=== PATIENT | female | born 1940 | race Caucasian/White ===

== ENCOUNTER 2022-08-22 08:00 | Outpatient (CLI) | payer MEDICARE, OTHER | END 2022-08-22 23:59 | disposition home or self-care (01) | LOC: LAB.S 08:00 | PROVIDERS: ATTEND Physician Assistant Medical | DX: R35.0 Frequency of micturition (principal); R30.0 Dysuria | CPT/HCPCS: 87086 ==

== ENCOUNTER 2023-08-21 08:00 | Outpatient (CLI) | payer MEDICARE, OTHER ==
--- NOTE | 2023-08-21 12:47 | XRAY Report ---
PROCEDURE: Clavicle RT INDICATIONS: RIGHT CLAVICLE PAIN TECHNIQUE: 2 views of the clavicle were acquired. COMPARISON: None. FINDINGS: Bones: No acute fractures or dislocations. No suspicious bony lesions. Moderate acromioclavicular joint osteoarthrosis. Soft tissues: Calcifications are seen adjacent to the greater tuberosity compatible with rotator cuf f calcific tendinosis. IMPRESSION: 1.Moderate acromioclavicular joint osteoarthrosis. 2.Distal rotator cuff calcific tendinopathy. Reviewed by: Elvis Plata MD on 08/21/2023 12:45 PM PDT Approved by: Elvis Plata MD on 08/21/2023 12:45 PM PDT Station ID: [id number]
--- NOTE | 2023-08-21 12:48 | XRAY Report ---
PROCEDURE: Shoulder 2+V RT INDICATIONS: RIGHT SHOULDER PAIN TECHNIQUE: 3 views of the shoulder were acquired. COMPARISON: None. FINDINGS: Bones: No acute fractures or dislocations. No suspicious bony lesions. Visualized ribs appear inta ct. Moderate acromioclavicular joint osteoarthrosis. Soft tissues: Calcifications adjacent to the greater tuberosity are better assessed on concurrent cl avicular radiographs. IMPRESSION: 1.Moderate acromioclavicular joint osteoarthrosis. 2.Distal rotator cuff calcific tendinopathy. Reviewed by: Elvis Plata MD on 08/21/2023 12:47 PM PDT Approved by: Elvis Plata MD on 08/21/2023 12:47 PM PDT Station ID: [id number]
[2023-08-21 21:43] LABS: BACTERIAL VAGINOSIS DNA NEGATIVE (NEGATIVE); CANDIDA GLABRATA DNA NEGATIVE (NEGATIVE); CANDIDA GROUP DNA POSITIVE (NEGATIVE); CANDIDA KRUSEI DNA NEGATIVE (NEGATIVE); TRICHOMONAS VAGINALIS DNA NEGATIVE (NEGATIVE)
== END 2023-08-21 23:59 | disposition home or self-care (01) ==
LOC: DI.S 08:00
PROVIDERS: ATTEND Registered Nurse
DX: M19.011 Primary osteoarthritis, right shoulder (principal); M25.811 Other specified joint disorders, right shoulder; R35.0 Frequency of micturition; R30.0 Dysuria
CPT/HCPCS: 81514; 87086

== ENCOUNTER 2023-10-27 18:36 | Emergency (ER) | payer MEDICARE, OTHER ==
--- NOTE | 2023-10-27 20:11 | XRAY Report ---
PROCEDURE: Shoulder 2+V RT INDICATIONS: fall, R upper arm pain TECHNIQUE: 3 views of the shoulder were acquired. COMPARISON: None. FINDINGS: Bones: No fractures or dislocations. No suspicious bony lesions. Moderate degenerative changes. Vis ualized ribs appear intact. Soft tissues: No suspicious soft tissue calcifications. The visualized lungs are within normal limi ts. IMPRESSION: No fracture demonstrated. Moderate degenerative changes most pronounced at the acromioclavicular joint. Consider follow-up radiographs in 10-14 days. Reviewed by: Juan Ramon Klein MD on 10/27/2023 8:09 PM PDT Approved by: Juan Ramon Klein MD on 10/27/2023 8:09 PM PDT Station ID: [id number]
--- NOTE | 2023-10-27 20:23 | ED Physician Documentation ---
PD HPI UPPER EXT INJURY - Stated complaint Stated Complaint: FALL/RT SHOULDER INJ - Chief complaint Chief Complaint: Trauma Ext - History obtained from History obtained from: Patient - History of Present Illness Location: Right, Shoulder Pain level max: 5 Pain level now: 5 Improved by: Rest, Immobilization Worsened by: Moving, Palpating Associated symptoms: No: Weakness, Numbness, Tingling, Swelling Contributing factors: No: Anticoagulated - Additonal information Additional information: Patient is an 83-year-old female who presents to the emergency department after a fall today while dealing with dogs in the kennel. She injured her right shoulder. No head injury. No headache. No neck or back pain. Worse with movement, better with rest. No numbness or tingling. No swelling. No deformity. Review of Systems Constitutional: denies: Fever, Chills GI: denies: Vomiting, Diarrhea PD PAST MEDICAL HISTORY - Past Medical History Cardiovascular: Hypertension, High cholesterol Neuro: TIA Endocrine/Autoimmune: Type 2 diabetes, HyPOthyroidism GI: GERD Other Past Medical History: insomnia - Past Surgical History Past Surgical History: No - Allergies Allergies/Adverse Reactions: Allergies Allergy/AdvReac Type Severity Reaction Status Date / Time semaglutide Allergy Unknown Verified 10/27/23 18:54 lisinopril AdvReac Respiratory Verified 10/27/23 18:54 - Social History Does the pt smoke?: No Smoking Status: Never smoker Does the pt drink ETOH?: Yes Does the pt have substance abuse?: No PD ED PE NORMAL - Vitals Vital signs reviewed: Yes - General General: Alert and oriented X 3, No acute distress - HEENT HEENT: Atraumatic, PERRL, EOMI, Moist mucous membranes - Neck Neck: Supple, no meningeal sign, No bony TTP - Cardiac Cardiac: RRR, Strong equal pulses - Respiratory Respiratory: No respiratory distress, Clear bilaterally - Abdomen Abdomen: Soft, Non tender, Non distended - Back Back: No spinal TTP - Derm Derm: Warm and dry - Extremities Extremities: Other (Limited range of motion of the right shoulder. No discrete tenderness about the glenohumeral joint. Neurovascular intact. Including the axillary nerve. No tenderness over the clavicle. Otherwise normal examination of the right upper extremity. All other major joints have a normal exam.) - Neuro Neuro: Alert and oriented X 3 - Psych Psych: Normal mood, Normal affect Results - Vitals Vitals: Vital Signs - 24 hr 10/27/23 10/27/23 18:45 20:28 Temperature 36.1 C L Heart Rate 74 62 Respiratory 18 16 Rate Blood Pressure 136/101 H 137/68 H O2 Saturation 98 95 Oxygen O2 Source Room air - Rads (name of study) Right shoulder x-ray Relevant Findings:: Final report received, See rad report PD Medical Decision Making - ED course Complexity details: reviewed results, re-evaluated patient, considered differential, d/w patient ED course: No acute findings on x-ray. Placed in a sling for comfort. Neurovascular intact including the axillary nerve. Head injury instructions given at bedside even though she denies striking her head. Patient declines a head CT at this time. She is reportedly on Plavix at home. Declines pain medication here for home. Patient counseled regarding signs and symptoms for which I believe and urgent re-evaluation would be necessary. Patient with good understanding of and agreement to plan and is comfortable going home at this time This document was made in part using voice recognition software. While efforts are made to proofread this document, sound alike and grammatical errors may occur. Departure - Departure Disposition: 01 Home, Self Care Clinical Impression: Contusion of right shoulder Qualifiers: Encounter type: initial encounter Qualified Code(s): S40.011A - Contusion of right shoulder, initial encounter Condition: Good Instructions: ED Contusion Shoulder Follow-Up: Ben Garcia MD [Primary Care Provider] - Comments: Your x-ray does not show acute abnormalities today. You can use the sling as needed for comfort. In a few days you should make sure to start moving your arm gently in small circles to help prevent a frozen shoulder. If you are still having pain in 1 week, please follow-up with your doctor for repeat evaluation. If you start to develop headaches, vomiting, dizziness or other new or worrisome symptoms, please return for evaluation of your head. Forms: PCP List Discharge Date/Time: 10/27/23 20:28
[2023-10-27 20:40] VITALS: BP 137/68; O2SAT 95
== END 2023-10-27 20:28 | disposition home or self-care (01) ==
LOC: ED 18:36
DX: S40.011A Contusion of right shoulder, initial encounter (principal); W18.39XA Other fall on same level, initial encounter; I10 Essential (primary) hypertension; E78.00 Pure hypercholesterolemia, unspecified; E11.9 Type 2 diabetes mellitus without complications; E03.9 Hypothyroidism, unspecified; Z86.73 Personal history of transient ischemic attack (TIA), and cerebral infarction without residual deficits
CPT/HCPCS: 99283

== ENCOUNTER 2023-11-29 16:36 | Outpatient (CLI) | payer MEDICARE, OTHER | END 2023-11-29 23:59 | disposition critical access hospital (66) | LOC: EMS 16:36 | DX: M25.472 Effusion, left ankle (principal); M25.572 Pain in left ankle and joints of left foot; W01.0XXA Fall on same level from slipping, tripping and stumbling without subsequent striking against object, initial encounter; Y93.01 Activity, walking, marching and hiking; Y92.008 Other place in unspecified non-institutional (private) residence as the place of occurrence of the external cause | CPT/HCPCS: A0425; A0427 ==

== ENCOUNTER 2023-11-29 17:10 | Emergency (ER) | payer MEDICARE, OTHER ==
--- NOTE | 2023-11-29 18:00 | XRAY Report ---
PROCEDURE: Ankle 3+V LT INDICATIONS: fall, ankle pain TECHNIQUE: 3 views of the ankle were acquired. COMPARISON: None. FINDINGS: Bones: Mildly displaced spiral fracture of the distal fibula. The tibia demonstrates medial subluxat ion/borderline dislocation at the tibiotalar joint space. There is asymmetric widening at the lateral aspect of the tibiotalar joint space. In addition, mild anterior subluxation/dislocation of the tibi a in relation to the talus is present. Soft tissues: Ankle edema.. Achilles tendon appears normal. IMPRESSION: Spiral distal fibular fracture with prominent subluxation/dislocation at the tibiotalar joint space a s described above. Reviewed by: Asia Chin MD on 11/29/2023 5:59 PM PDT Approved by: Asia Chin MD on 11/29/2023 5:59 PM PDT Station ID: [id number]
--- NOTE | 2023-11-29 18:04 | ED Physician Documentation ---
History of Present Illness - Stated complaint Stated Complaint: FALL - Chief complaint Chief Complaint: Trauma Ext - Additonal information Additional information: Patient is an 83-year-old female presenting to the emergency department after a fall at home. Patient was attempting to move gravel around her car before backing it out when she tripped and fell on her left foot. Ambulance was called shortly after and she received pain medications en route. Patient's pain improved here in the emergency department. She denies hitting her head no loss of consciousness and patient is not on blood thinners. Patient denies any numbness or tingling in her left foot. No previous injuries to her left foot. Patient denies any other extremity pain at this time. PD PAST MEDICAL HISTORY - Past Medical History Cardiovascular: Hypertension, High cholesterol Neuro: TIA Endocrine/Autoimmune: Type 2 diabetes, HyPOthyroidism GI: GERD - Past Surgical History Past Surgical History: No - Allergies Allergies/Adverse Reactions: Allergies Allergy/AdvReac Type Severity Reaction Status Date / Time semaglutide Allergy Unknown Verified 11/29/23 17:17 lisinopril AdvReac Respiratory Verified 11/29/23 17:17 - Social History Does the pt smoke?: No Smoking Status: Never smoker Does the pt drink ETOH?: Yes Does the pt have substance abuse?: No PD ED PE NORMAL - Vitals Vital signs reviewed: Yes - General General: Alert and oriented X 3 - HEENT HEENT: Atraumatic - Neck Neck: Supple, no meningeal sign - Cardiac Cardiac: RRR, No murmur, No gallop, No rub - Respiratory Respiratory: No respiratory distress, Clear bilaterally - Abdomen Abdomen: Normal bowel sounds - Derm Derm: Normal color, Other (Abrasions noted to medial portion of left ankle.) - Extremities Extremities: No edema, No calf tenderness / cord, Other (Obvious swelling noted to left ankle) - Neuro Neuro: Alert and oriented X 3 Eye Opening: Spontaneous Motor: Obeys Commands Verbal: Oriented GCS Score: 15 Results - Vitals Vitals: Vital Signs - 24 hr 11/29/23 11/29/23 11/29/23 17:17 19:19 21:43 Temperature 36.5 C Heart Rate 70 68 80 Respiratory 18 16 16 Rate Blood Pressure 124/66 115/64 117/58 L O2 Saturation 95 96 96 Oxygen O2 Source Room air PD Medical Decision Making - ED course Complexity details: reviewed old records, reviewed results ED course: Patient is an 83-year-old female presenting to the emergency department with left foot pain after a fall at home. Patient tripped when trying to fix gravel around her car. She notes severe pain to her left ankle. On arrival obvious deformity and swelling noted to left ankle with abrasions to medial and dorsal portions of left ankle. Fibular head tenderness on examination as well. Patient remains neurovascularly intact distally full range of motion of digits 1 through 5 intact mild flexion of left knee intact however pain on examination of fibular head here in ED. Significant swelling to medial malleolus here in ED as well. X-ray of left ankle shows distal fibular spiral fracture with significant widening of tibiotalar joint space widening. Patient's last tetanus was in 2021. Concerns for possible open fracture given area of abrasions and on x-ray concern for possible gravel on imaging. Tibia and fibula x-rays show no acute fracture. 2000: Discussed with orthopedics at [facility] Dr. Lowe he is agreeable with patient being transferred over patient has right received 2 g of Ancef and tetanus is up-to-date. Patient placed in a posterior stirrup splint he is agreeable with this. Patient will be sent to ED at [facility] for triage examination. Patient updated and agreeable with this plan she is agreeable to transfer and is still reporting some left foot pain. Will give small dose of fentanyl. Patient taken over by Dr. Farnsworth while she is awaiting transfer at this time. Departure - Departure Disposition: 02 Transfer Acute Care Hosp Clinical Impression: Left fibular fracture, Open fibular fracture Condition: Fair Comments: You were seen here in the emergency department transferring you to [facility] for further evaluation by an orthopedic surgeon as we do not have one here at [facility]. Forms: PCP List
[2023-11-29] MEDS ORDERED: ceFAZolin 2 GM VIAL ONE (18:56)
[2023-11-29] MEDS: ceFAZolin (2G) 2 GM in SODIUM CHLORIDE 0.9% 100ML 100 ML IV STA (18:59)
--- NOTE | 2023-11-29 19:18 | XRAY Report ---
PROCEDURE: Tib/Fib LT INDICATIONS: pain and swelling TECHNIQUE: 2 views of the tibia and fibula were acquired. COMPARISON: None. FINDINGS: Bones: No fractures or dislocations. No suspicious bony lesions. Soft tissues: No suspicious soft tissue calcifications or masses. IMPRESSION: No visualized acute fracture or dislocation. However, occult injury cannot be excluded. Recommend ese rt interval imaging follow-up in 7-10 days as clinically indicated for additional evaluation. Reviewed by: Asia Chin MD on 11/29/2023 7:17 PM PDT Approved by: Asia Chin MD on 11/29/2023 7:17 PM PDT Station ID: [id number]
[2023-11-29] MEDS: fentaNYL 100 MCG/2 ML VIAL IVP STA (20:38)
[2023-11-29 21:02] VITALS: O2SAT 96
[2023-11-29 21:46] VITALS: BP 117/58
--- NOTE | 2023-12-03 16:48 | ED Physician Documentation ---
ED Addendum - Addendum Addendum: 12/03/23 16:48 No changes during my shift. Patient transferred to [facility] as expected
== END 2023-11-29 22:39 | disposition short-term general hospital (02) ==
LOC: EDUNIT# → ED 17:10
DX: S90.512A Abrasion, left ankle, initial encounter (principal); S82.44 Spiral fracture of shaft of fibula; W01.0XXA Fall on same level from slipping, tripping and stumbling without subsequent striking against object, initial encounter; Y93.89 Activity, other specified; Y92.008 Other place in unspecified non-institutional (private) residence as the place of occurrence of the external cause
CPT/HCPCS: 96365; 96375; 99284

== ENCOUNTER 2023-12-14 08:00 | Outpatient (CLI) | payer MEDICARE, OTHER ==
[2023-12-14 02:13] LABS: MAGNESIUM 1.6 mg/dL (1.7-2.3)
[2023-12-14 10:40] LABS: ESTIMATED AVERAGE GLUCOSE 140 mg/dL (70-100); HEMOGLOBIN A1c% 6.5 % (4.27-6.07)
== END 2023-12-14 23:58 | disposition home or self-care (01) ==
LOC: LAB.R 08:00
PROVIDERS: ATTEND Family Medicine
DX: I10 Essential (primary) hypertension (principal); E11.9 Type 2 diabetes mellitus without complications; E83.42 Hypomagnesemia
CPT/HCPCS: 82607; 83036; 83735